=== PATIENT | male | born 1980 | race African-American/Black ===

== ENCOUNTER 2021-07-30 21:37 | Emergency (ER) | payer SELFPAY ==
[2021-07-30 22:37] LABS: Absolute Lymphocytes (CBC) 1.4 K/uL (0.7-4.9); Basophils % 0.6 % (0-1.3); Hematocrit 45.6 % (39.6-49.0); Lymphocytes % 14.1 % (15.3-44.8); MPV 8.7 fL (7.6-11.3)
[2021-07-30 22:39] LABS: Urine Blood Negative (Negative); Urine Glucose Negative (Negative); Urine Protein Negative (Negative); Urine Specific Gravity <=1.005 (1.005-1.030); Urine pH 5.5 (5.0-7.0)
[2021-07-30 22:42] LABS: Protime INR 1.13
[2021-07-30 23:10] LABS: ALT/SGPT 31 U/L (12-78); AST/SGOT 13 U/L (15-37); Albumin 4.2 g/dL (3.4-5.0); Alkaline Phosphatase 59 U/L (45-117); BUN Blood Urea Nitrogen 7 mg/dL (7-18); Bicarbonate 26 mmol/L (21-32); Bilirubin Direct 0.2 mg/dL (0-0.2); Glucose Level 78 mg/dL (74-106); Potassium 3.3 mmol/L (3.5-5.1); Protein, Total 8.1 g/dL (6.4-8.2); Sodium Level 139 mmol/L (136-145)
[2021-07-30 23:22] LABS: Barbiturates NEGATIVE (NEGATIVE); Benzodiazepines NEGATIVE (NEGATIVE); Cocaine NEGATIVE (NEGATIVE); METHAMPHETAM NEGATIVE (NEGATIVE); Methadone NEGATIVE (NEGATIVE); Opiates NEGATIVE (NEGATIVE); Phencyclidine NEGATIVE (NEGATIVE); THC Cannibis POSITIVE (NEGATIVE)
--- NOTE | 2021-07-31 03:24 | EDPHYS ---
Physician Documentation [facility] Name: Landon Whelan Age: 40 yrs Sex: Male : 1980 Arrival Date: 07/30/2021 Time: 21:44 Bed 6 Private MD: ED Physician Aries Green HPI: 07/30 21:35 This 40 yrs old Black Male presents to ER via EMS with complaints of Psychiatric mh7 Problem. Alcohol Use. 21:35 The patient presents to the emergency department with a history of substance abuse, mh7 Type: beer, the amount of abuse is unknown, for an unknown duration, " Wants to get his head straight". Onset: The symptoms/episode began/occurred today. Past psychiatric history: Prior diagnosis: unknown, Psychiatric medications include: none, Primary psychiatric physician: the patient does not have a primary psychiatric physician, the patient has not had a prior suicide gesture, the patient has a previous inpatient psychiatric history, last year, at [facility], the patient's last psychiatric treatment was last year. Associated signs and symptoms: Pertinent positives; anxiety, substance abuse, Pertinent negatives: abdominal pain, chest pain, chills, delusions, depression, fever, hallucinations, headache, homicidal ideation, nausea, night sweats, palpitations, paranoia, shortness of breath, suicide ideation, tremor, vomiting. Severity of symptoms: At their worst the symptoms were moderate today, in the emergency department the symptoms are unchanged despite EMS interventions. EMS reports they were called to scene by police where patient was attempting to enter home of his ex. patient states that he wants to go to [facility] to get his head straight. He admits to drinking alcohol and smoking some substances. He denies any suicidal or homicidal ideation. He denies any auditory or visual hallucinations. He has variable cooperativity with questions.. Historical: - Allergies: 21:51 No Known Allergies; wg - Home Meds: 21:51 None [Active]; wg - PMHx: 21:51 None; wg - Immunization history:: Adult Immunizations up to date. - Social history:: Smoking status: Patient reports the use of cigarette tobacco products, unknown Patient uses alcohol, street drugs, marijuana, Patient/guardian denies using IV drugs. ROS: 21:35 Constitutional: Negative for fever, chills, and weight loss, Eyes: Negative for injury, mh7 pain, redness, and discharge, ENT: Negative for injury, pain, and discharge, Neck: Negative for injury, pain, and swelling, Cardiovascular: Negative for chest pain, palpitations, and edema, Respiratory: Negative for shortness of breath, cough, wheezing, and pleuritic chest pain, Abdomen/GI: Negative for abdominal pain, nausea, vomiting, diarrhea, and constipation, Back: Negative for injury and pain, : Negative for injury, bleeding, discharge, and swelling, MS/Extremity: Negative for injury and deformity, Skin: Negative for injury, rash, and discoloration, Neuro: Negative for headache, weakness, numbness, tingling, and seizure, Allergy/Immunology: Negative for hives, rash, and allergies, Endocrine: Negative for neck swelling, polydipsia, polyuria, polyphagia, and marked weight changes, Hematologic/Lymphatic: Negative for swollen nodes, abnormal bleeding, and unusual bruising. Exam: 21:35 Head/Face: Normocephalic, atraumatic. mh7 21:35 Eyes: Pupils equal round and reactive to light, extra-ocular motions intact. Lids and lashes normal. Conjunctiva and sclera are non-icteric and not injected. Cornea within normal limits. Periorbital areas with no swelling, redness, or edema. Neck: Trachea midline, no thyromegaly or masses palpated, and no cervical lymphadenopathy. Supple, full range of motion without nuchal rigidity, or vertebral point tenderness. No Meningismus. Chest/axilla: Normal chest wall appearance and motion. Nontender with no deformity. No lesions are appreciated. 21:35 Respiratory: Lungs have equal breath sounds bilaterally, clear to auscultation and percussion. No rales, rhonchi or wheezes noted. No increased work of breathing, no retractions or nasal flaring. Abdomen/GI: Soft, non-tender, with normal bowel sounds. No distension or tympany. No guarding or rebound. No evidence of tenderness throughout. Back: No spinal tenderness. No costovertebral tenderness. Full range of motion. Skin: Warm, dry with normal turgor. Normal color with no rashes, no lesions, and no evidence of cellulitis. MS/ Extremity: Pulses equal, no cyanosis. Neurovascular intact. Full, normal range of motion. Neuro: Awake and alert, GCS 15, oriented to person, place, time, and situation. Cranial nerves II-XII grossly intact. Motor strength 5/5 in all extremities. Sensory grossly intact. Cerebellar exam normal. Normal gait. 21:35 Constitutional: The patient appears in no acute distress, alert, awake, agitated. 21:35 Cardiovascular: Rate: tachycardic, Rhythm: regular, Pulses: no pulse deficits are appreciated, Heart sounds: normal, normal S1and S2, Edema: is not appreciated, JVD: is not appreciated. 21:35 Psych: Behavior/mood is anxious, angry, Affect is animated, Oriented to person, place, time, Patient has no thoughts/intents to harm self or others. Judgement / Insight is normal. Memory is normal. Delusions/hallucinations are not present. Vital Signs: 21:44 BP 137 / 90; Pulse 110; Resp 18; Temp 98.6; Pulse Ox 100% on R/A; Weight 81.65 kg; wg Height 6 ft. 2 in. (187.96 cm); Pain 0/10; 22:39 BP 128 / 88; Pulse 92; Resp 18; Pulse Ox 99% on R/A; Pain 0/10; wg 23:14 BP 126 / 82; Pulse 90; Resp 18; Pulse Ox 99% on R/A; wg 07/31 00:50 BP 118 / 82; Pulse 82; Resp 18; Pulse Ox 99% on R/A; wg 02:15 BP 119 / 78; Pulse 78; Resp 18; Pulse Ox 99% ; Pain 0/10; wg 03:22 BP 121 / 78; Pulse 80; Resp 18; Pulse Ox 99% on R/A; Pain 0/10; wg 07/30 21:44 Body Mass Index 23.11 (81.65 kg, 187.96 cm) MDM: 03:21 Differential diagnosis: drug withdrawal. depression, Alcohol intoxication, substance mh7 abuse. Data reviewed: vital signs, nurses notes, EMS record, lab test result(s), CBC, drug level(s), electrolytes, urine drug screen, EKG. Data interpreted: Pulse oximetry: on room air is 99 %. Interpretation: normal. Counseling: I had a detailed discussion with the patient and/or guardian regarding: the historical points, exam findings, and any diagnostic results supporting the discharge/admit diagnosis, lab results, radiology results, the need for outpatient follow up, to return to the emergency department if symptoms worsen or persist or if there are any questions or concerns that arise at home. Response to treatment: the patient's symptoms have resolved after treatment, the patient's blood pressure is in an acceptable range, mental status has returned to baseline, the patient no longer shows bradycardia, the patient is not short of breath, the patient is not tachycardic, the patient's pain is gone, the patient's temperature has normalized. 03:23 Patient medically screened. [facility] 07/30 21:46 Order name: Acetaminophen [facility] 07/30 21:46 Order name: Basic Metabolic Panel; Complete Time: 03:24 [facility] 07/30 21:46 Order name: CBC with Diff; Complete Time: 23:15 [facility] 07/30 21:46 Order name: ETOH Level; Complete Time: 00: [facility] 07/30 21:46 Order name: Hepatic Function; Complete Time: 03:24 [facility] 07/30 21:46 Order name: PT-INR; Complete Time: 23:15 [facility] 07/30 21:46 Order name: Ptt, Activated; Complete Time: 23:15 [facility] 07/30 21:46 Order name: Salicylate; Complete Time: 23:15 [facility] 07/30 21:46 Order name: Urine Drug Screen; Complete Time: 00: [facility] 07/30 21:46 Order name: Acetaminophen Level; Complete Time: 03:24 [facility] 07/30 22:38 Order name: Urine Dipstick-Ancillary; Complete Time: 23:15 [facility] 07/30 23:27 Order name: SARS-COV-2 RT PCR; Complete Time: 00: [facility] 07/31 03:10 Order name: ETOH Level 07/30 21:46 Order name: EKG; Complete Time: 21:46 [facility] 07/30 21:46 Order name: EKG - Nurse/Tech; Complete Time: 22:27 [facility] 07/30 21:46 Order name: IV Saline Lock; Complete Time: 22:28 [facility] 07/30 21:46 Order name: Labs collected and sent; Complete Time: 22:28 [facility] 07/30 21:46 Order name: Suicide Screening ([place]); Complete Time: 22:38 [facility] 07/30 21:46 Order name: Urine Dipstick-Ancillary (obtain specimen); Complete Time: 22:38 [facility] 07/31 03:10 Order name: Alcohol Serum/Plasma EDMS Administered Medications: No medications were administered Disposition Summary: 07/31/21 03:23 Discharge Ordered Location: Home [facility] Problem: an acute exacerbation [facility] Symptoms: have improved [facility] Condition: Stable [facility] Diagnosis - Alcohol use, unspecified with intoxication [facility] - Cannabis abuse [facility] Followup: [facility] - With: Private Physician - When: 1 - 2 days - Reason: Worsening of condition, Recheck today's complaints, Continuance of care, Re-evaluation by your physician Followup: [facility] - With: Luis Sanchez MD - When: 1 - 2 days - Reason: Worsening of condition, Recheck today's complaints Discharge Instructions: - Discharge Summary Sheet [facility] - Cannabis Use Disorder [facility] - Alcohol Intoxication, [id number] [facility] Forms: - Medication Reconciliation Form [facility] - Thank You Letter [facility] - Antibiotic Education [facility] - Prescription Opioid Use [facility] Signatures: Dispatcher [employer] EDAries Deleon MD MD [facility] Casey Yan RN wg Corrections: (The following items were deleted from the chart) 07/30 22:34 21:49 CORONAVIRUS+MR.LAB.BRZ ordered. EDPA EDMS
--- NOTE | 2021-07-31 03:24 | ER ---
Nurse's Notes [facility] Name: Landon Whelan Age: 40 yrs Sex: Male : 1980 Arrival Date: 07/30/2021 Time: 21:44 Bed 6 Private MD: Diagnosis: Alcohol use, unspecified with intoxication;Cannabis abuse Presentation: 07/30 21:44 Chief complaint: Patient states: Pt states he wants to come in to get his head wg straight. Pt denies SI \\T\\ HI. EMS stated pt was brought in from a residence following a call from PD. Pt admits to smoking weed, "vanilla PA" and several beers. Pt states he want to go to [facility] where he has been treated for psych in the past. Pt initially refusing vitals but states he's willing to be cooperative. Coronavirus screen: Vaccine status: Patient reports being unvaccinated. At this time, the client does not indicate any symptoms associated with coronavirus-19. Ebola Screen: Patient negative for fever greater than or equal to 101.5 degrees Fahrenheit, and additional compatible Ebola Virus Disease symptoms Patient denies exposure to infectious person. Patient denies travel to an Ebola-affected area in the 21 days before illness onset. Initial Sepsis Screen: Does the patient meet any 2 criteria? No. Patient's initial sepsis screen is negative. Initial Sepsis Screen: Does the patient have a suspected source of infection? No. Patient's initial sepsis screen is negative. Risk Assessment: Do you want to hurt yourself or someone else? Patient reports no desire to harm self or others. Onset of symptoms was July 30, 2021. Care prior to arrival: None. 21:44 Method Of Arrival: EMS: [facility] 21:44 Acuity: ADRIANO 2 wg Triage Assessment: 21:49 General: Appears comfortable, well developed, Behavior is anxious, Uncooperative at wg times. Inappropriately singing loudly at times. . General: Smells of alcohol. Pain: Denies pain. Neuro: Level of Consciousness is awake, alert, obeys commands, Oriented to person, place, time, situation, Lining Folder are equal bilaterally Moves all extremities. Speech is normal, Facial symmetry appears normal, Pupils are PERRLA. Cardiovascular: No deficits noted. Respiratory: No deficits noted. GI: No deficits noted. : No deficits noted. : No deficits noted. Derm: No deficits noted. 21:51 EENT: No deficits noted. Musculoskeletal: No deficits noted. wg Historical: - Allergies: 21:51 No Known Allergies; wg - Home Meds: 21:51 None [Active]; wg - PMHx: 21:51 None; wg - Immunization history:: Adult Immunizations up to date. - Social history:: Smoking status: Patient reports the use of cigarette tobacco products, unknown Patient uses alcohol, street drugs, marijuana, Patient/guardian denies using IV drugs. Screenin:29 Abuse screen: Denies threats or abuse. Denies injuries from another. Nutritional wg screening: No deficits noted. Tuberculosis screening: No symptoms or risk factors identified. Fall Risk IV access (20 points). Mental Status-. Assessment: 22:29 Reassessment: Patient appears in no apparent distress at this time. No changes from wg previously documented assessment. Patient is alert, oriented x 3, equal unlabored respirations, skin warm/dry/pink. Patient states symptoms have improved. 22:39 Reassessment: Pt calm and cooperative. Pt watching TV. States he does not want to harm wg self or others. . 23:14 Reassessment: Patient and/or family updated on plan of care and expected duration. Pain wg level reassessed. Patient is alert, oriented x 3, equal unlabored respirations, skin warm/dry/pink. Pt sleeping. 07/31 00:58 Reassessment: No changes from previously documented assessment. Patient and/or family wg updated on plan of care and expected duration. Pain level reassessed. Patient is alert, oriented x 3, equal unlabored respirations, skin warm/dry/pink. Pt sleeping. 02:27 Reassessment: No changes from previously documented assessment. Patient and/or family wg updated on plan of care and expected duration. Pain level reassessed. Patient is alert, oriented x 3, equal unlabored respirations, skin warm/dry/pink. Pt sleeping. Pt would get up and walk to bathroom on occasion with steady gait. 03:27 Reassessment: Pt states he wants to go home. States he is feeling much better and his wg head is clear. Pt will call friend for a ride home. Vital Signs: 07/30 21:44 BP 137 / 90; Pulse 110; Resp 18; Temp 98.6; Pulse Ox 100% on R/A; Weight 81.65 kg; wg Height 6 ft. 2 in. (187.96 cm); Pain 0/10; 22:39 BP 128 / 88; Pulse 92; Resp 18; Pulse Ox 99% on R/A; Pain 0/10; wg 23:14 BP 126 / 82; Pulse 90; Resp 18; Pulse Ox 99% on R/A; wg 07/31 00:50 BP 118 / 82; Pulse 82; Resp 18; Pulse Ox 99% on R/A; wg 02:15 BP 119 / 78; Pulse 78; Resp 18; Pulse Ox 99% ; Pain 0/10; wg 03:22 BP 121 / 78; Pulse 80; Resp 18; Pulse Ox 99% on R/A; Pain 0/10; wg 07/30 21:44 Body Mass Index 23.11 (81.65 kg, 187.96 cm) ED Course: 07/30 21:44 Patient arrived in ED. 21:44 Csaey Yan RN is Primary Nurse. 21:45 Aries Green MD is Attending Physician. 7 21:49 Triage completed. wg 21:49 Arm band placed on right wrist. wg 22:28 Acetaminophen Level Sent. wg 22:28 Acetaminophen Sent. wg 22:28 Basic Metabolic Panel Sent. wg 22:28 CBC with Diff Sent. wg 22:28 ETOH Level Sent. wg 22:28 Hepatic Function Sent. wg 22:28 PT-INR Sent. wg 22:28 Ptt, Activated Sent. wg 22:28 Salicylate Sent. wg 22:28 Urine Drug Screen Sent. 22:29 Inserted saline lock: 20 gauge in right antecubital area, using aseptic technique. wg 22:30 No provider procedures requiring assistance completed. wg 22:31 Patient has correct armband on for positive identification. Fall risk band placed. Call wg light in reach. Side rails up X2. NIBP on. Cardiac monitoring not applicable on this patient. Patient is placed in psych hold. 07/31 03:22 Luis Sanchez MD is Referral Physician. 7 03:27 IV discontinued, intact, bleeding controlled, No redness/swelling at site. Pressure wg dressing applied. 03:29 ETOH Level Sent. 03:29 Alcohol Serum/Plasma Sent. Administered Medications: No medications were administered Outcome: 03:23 Discharge ordered by . good 03:28 Discharged to home ambulatory. wg 03:28 Condition: stable 03:28 Discharge instructions given to patient, Instructed on discharge instructions, follow up and referral plans. Demonstrated understanding of instructions, follow-up care. 03:29 Patient left the ED. wg Signatures: Aries Green MD MD mh7 Gamba, Liam, RN meron Corrections: (The following items were deleted from the chart) 07/30 22:34 22:28 CORONAVIRUS+MR.LAB.BRZ drawn and sent. meron EDMS
[2021-07-31 03:36] VITALS: TEMP 98.6
[2021-07-31 03:37] VITALS: O2SAT 99
[2021-07-31 03:42] VITALS: BP 121/78
== END 2021-07-31 03:29 | disposition home or self-care (01) ==
LOC: ER 21:37
DX: F12.10 Cannabis abuse, uncomplicated (principal); Z72.0 Tobacco use
CPT/HCPCS: 36415; 80048; 80076; 80307; 80320; 80329; 81003; 85025; 85610; 85730; 93005; 99284; U0003

== ENCOUNTER 2021-08-01 15:21 | Emergency (ER) | payer SELFPAY ==
--- NOTE | 2021-08-01 15:47 | ER ---
Nurse's Notes [facility] Name: Landon Whelan Age: 40 yrs Sex: Male : 1980 Arrival Date: 08/01/2021 Time: 15:25 Bed Waiting Private MD: Diagnosis: Encounter for screening, unspecified Presentation: 08/01 15:28 Chief complaint: Patient states: Covid + 1 month ago, denies current symptoms, jl7 requesting re-test. Coronavirus screen: Vaccine status: Patient reports being unvaccinated. At this time, the client does not indicate any symptoms associated with coronavirus-19. Ebola Screen: No symptoms or risks identified at this time. Initial Sepsis Screen: Does the patient meet any 2 criteria? No. Patient's initial sepsis screen is negative. Does the patient have a suspected source of infection? No. Patient's initial sepsis screen is negative. Risk Assessment: Do you want to hurt yourself or someone else? Patient reports no desire to harm self or others. Onset of symptoms is unknown. 15:28 Method Of Arrival: Ambulatory jl 15:28 Acuity: ADRIANO 5 jl7 Triage Assessment: 15:31 General: Appears in no apparent distress. comfortable, Behavior is calm, cooperative, jl7 appropriate for age. Pain: Denies pain. Historical: - Allergies: 15:31 No Known Allergies; jl7 - Home Meds: 15:31 None [Active]; jl7 - PMHx: 15:31 None; jl7 - PSHx: 15:31 None; jl7 - Immunization history:: Adult Immunizations not up to date, Client reports having NOT received the Covid vaccine. - Social history:: Smoking status: Patient reports the use of cigarette tobacco products, smokes one pack cigarettes per day. Screenin:36 Abuse screen: Denies threats or abuse. Denies injuries from another. Nutritional jl7 screening: No deficits noted. Tuberculosis screening: No symptoms or risk factors identified. Fall Risk None identified. Assessment: 15:31 Reassessment: NGUYỄN Staley in triage assessing pt. jl7 Vital Signs: 15:28 BP 120 / 96; Pulse 86; Resp 17; Temp 98.5; Pulse Ox 100% ; Weight 70.31 kg; Height 5 jl7 ft. 10 in. (177.80 cm); Pain 0/10; 15:28 Body Mass Index 22.24 (70.31 kg, 177.80 cm) jl7 ED Course: 15:25 Patient arrived in ED. mr 15:25 Rebeka Mckeon FNP-C is [facility]. kb 15:25 Jared Gibson MD is Attending Physician. kb 15:30 Triage completed. jl7 15:31 Arm band placed on right wrist. jl7 15:36 Daron Kim, LISA is Primary Nurse. jl7 15:36 Patient has correct armband on for positive identification. jl7 15:36 No provider procedures requiring assistance completed. Patient did not have IV access jl7 during this emergency room visit. Administered Medications: No medications were administered Outcome: 15:36 Medical screen evaluation completed per provider. Patient declined treatment. jl7 15:36 Condition: stable jl7 15:46 Discharge ordered by . kb 15:59 Patient left the ED. hb Signatures: Rebeka Mckeon FNP-C FNP-Zoraida Rubi mr Kaykay Verdugo RN RN Daron Kim RN RN jl7
--- NOTE | 2021-08-01 15:47 | EDPHYS ---
Physician Documentation [facility] Name: Landon Whelan Age: 40 yrs Sex: Male : 1980 Arrival Date: 08/01/2021 Time: 15:25 Bed Waiting Private MD: ED Physician Jared Gibson HPI: 08/01 16:15 This 40 yrs old Black Male presents to ER via Ambulatory with complaints of Covid Test. kb 16:15 Pt states he tested positive for covid a month ago at [facility] and wants to see if he still kb has it. Denies any symptoms at this time. Onset: The symptoms/episode began/occurred today. Severity of symptoms: At their worst the symptoms were mild in the emergency department the symptoms have resolved. The patient has not experienced similar symptoms in the past. The patient has not recently seen a physician. Historical: - Allergies: 15:31 No Known Allergies; jl7 - Home Meds: 15:31 None [Active]; jl7 - PMHx: 15:31 None; jl7 - PSHx: 15:31 None; jl7 - Immunization history:: Adult Immunizations not up to date, Client reports having NOT received the Covid vaccine. - Social history:: Smoking status: Patient reports the use of cigarette tobacco products, smokes one pack cigarettes per day. ROS: 16:03 Constitutional: Negative for fever, chills, and weight loss. kb 16:03 All other systems are negative. Exam: 16:03 Constitutional: This is a well developed, well nourished patient who is awake, alert, kb and in no acute distress. Head/Face: Normocephalic, atraumatic. ENT: Moist Mucous membranes Respiratory: Respirations even and unlabored. No increased work of breathing, no retractions or nasal flaring. Skin: Warm, dry with normal turgor. Normal color. MS/ Extremity: Pulses equal, no cyanosis. Neurovascular intact. Full, normal range of motion. Neuro: Awake and alert, GCS 15, oriented to person, place, time, and situation. Moves all extremities. Normal gait. Psych: Awake, alert, with orientation to person, place and time. Behavior, mood, and affect are within normal limits. Vital Signs: 15:28 BP 120 / 96; Pulse 86; Resp 17; Temp 98.5; Pulse Ox 100% ; Weight 70.31 kg; Height 5 jl7 ft. 10 in. (177.80 cm); Pain 0/10; 15:28 Body Mass Index 22.24 (70.31 kg, 177.80 cm) jl7 MDM: 15:46 Patient medically screened. kb 16:03 Data reviewed: vital signs, nurses notes. Data interpreted: Pulse oximetry: on room air kb is 100 %. Interpretation: normal. Counseling: I had a detailed discussion with the patient and/or guardian regarding: the historical points, exam findings, and any diagnostic results supporting the discharge/admit diagnosis, the need for outpatient follow up, a family practitioner, to return to the emergency department if symptoms worsen or persist or if there are any questions or concerns that arise at home. Administered Medications: No medications were administered Disposition: 15:35 Encounter for repeat covid test - asymptomatic. kb 16:54 Co-signature as Attending Physician, Jared Gibson MD. rn Disposition Summary: 08/01/21 15:46 Discharge Ordered Location: Home kb Condition: Stable kb Diagnosis - Encounter for screening, unspecified kb Followup: kb - With: Emergency Department - When: As needed - Reason: Worsening of condition Followup: kb - With: Private Physician - When: 2 - 3 days - Reason: Recheck today's complaints, Continuance of care, Re-evaluation by your physician Forms: - Medication Reconciliation Form kb - Thank You Letter kb - Antibiotic Education kb - Prescription Opioid Use kb Signatures: Rebeka Mckeon, CYBER SECURITY MANAGER-C CYBER SECURITY MANAGER-Ckb Jared Gibson MD MD rn Leal, Jahala, RN RN jl7
[2021-08-01 16:27] VITALS: BP 120/96; TEMP 98.5; O2SAT 100
== END 2021-08-01 15:59 | disposition home or self-care (01) ==
LOC: ER 15:21
DX: Z20.822 Contact with and (suspected) exposure to COVID-19 (principal)
CPT/HCPCS: 99281

== ENCOUNTER 2022-10-08 10:28 | Observation (INO) | payer SELFPAY ==
--- NOTE | 2022-10-08 11:38 | ER ---
Nurse's Notes [facility] Name: Landon Whelan Age: 41 yrs Sex: Male : 1980 Arrival Date: 10/08/2022 Time: 10:31 Bed 16 Private MD: Diagnosis: Right upper extremity DVT;Pain in right arm Presentation: 10/08 10:38 Chief complaint: Patient states: Pt reports spontaneous onset of right arm pain and kb3 swelling that began on Sunday. Coronavirus screen: Vaccine status: Patient reports being unvaccinated. Client denies travel out of the [place] in the last 14 days. Ebola Screen: Patient negative for fever greater than or equal to 101.5 degrees Fahrenheit, and additional compatible Ebola Virus Disease symptoms Patient denies exposure to infectious person. Patient denies travel to an Ebola-affected area in the 21 days before illness onset. Initial Sepsis Screen: Does the patient meet any 2 criteria? No. Patient's initial sepsis screen is negative. Does the patient have a suspected source of infection? No. Patient's initial sepsis screen is negative. Risk Assessment: Do you want to hurt yourself or someone else? Patient reports no desire to harm self or others. Onset of symptoms was October 06, 2022. 10:38 Method Of Arrival: Ambulatory kb3 10:38 Acuity: ADRIANO 3 kb3 Triage Assessment: 10:39 General: Appears in no apparent distress. Behavior is calm, cooperative. Pain: kb3 Complains of pain in right tricep, right elbow and palmar aspect of right forearm Pain does not radiate. Pain currently is 5 out of 10 on a pain scale. Historical: - Allergies: 10:39 No Known Allergies; kb3 - Home Meds: 10:39 None [Active]; kb3 - PMHx: 10:39 None; kb3 - PSHx: 10:39 Knee sx; kb3 - Immunization history:: Adult Immunizations up to date, Client reports having NOT received the Covid vaccine. Last tetanus immunization: up to date. - Social history:: Smoking status: Patient reports the use of cigarette tobacco products, cigars. Screenin:45 Abuse screen: Denies threats or abuse. Denies injuries from another. Nutritional kb3 screening: No deficits noted. Tuberculosis screening: No symptoms or risk factors identified. Fall Risk None identified. Assessment: 10:45 General: See triage note. kb3 11:50 General: Appears in no apparent distress. comfortable, Behavior is calm, cooperative. tp1 Pain: Complains of pain in right arm Pain does not radiate. Pain currently is 5 out of 10 on a pain scale. Quality of pain is described as sharp. Neuro: Level of Consciousness is awake, alert, obeys commands, Oriented to person, place, time, situation. Cardiovascular: Capillary refill < 3 seconds in bilateral fingers Patient's skin is warm and dry. Respiratory: Airway is patent Respiratory effort is even, unlabored, Denies shortness of breath. GI: No signs and/or symptoms were reported involving the gastrointestinal system. : No signs and/or symptoms were reported regarding the genitourinary system. EENT: No signs and/or symptoms were reported regarding the EENT system. Derm: Skin temperature is right upper extremity is warm. Musculoskeletal: Circulation, motion, and sensation intact. Swelling present in right bicep Denies numbness in, right hand. 12:56 Reassessment: Patient appears in no apparent distress at this time. No changes from tp1 previously documented assessment. Patient and/or family updated on plan of care and expected duration. Pain level reassessed. Patient is alert, oriented x 3, equal unlabored respirations, skin warm/dry/pink. 13:56 Reassessment: Patient appears in no apparent distress at this time. No changes from tp1 previously documented assessment. Patient is alert, oriented x 3, equal unlabored respirations, skin warm/dry/pink. resting comfortably watching TV. 15:11 Reassessment: Patient appears in no apparent distress at this time. No changes from tp1 previously documented assessment. Patient is alert, oriented x 3, equal unlabored respirations, skin warm/dry/pink. Patient denies pain at this time. Vital Signs: 10:38 BP 114 / 81; Pulse 84; Resp 20; Temp 99.4; Pulse Ox 100% ; Weight 70.31 kg; Height 5 kb3 ft. 10 in. (177.80 cm); Pain 5/10; 12:02 BP 119 / 83; Pulse 67; Resp 16; Pulse Ox 91% on R/A; tp1 12:56 BP 118 / 82; Pulse 74; Resp 16; Pulse Ox 100% on R/A; tp1 13:57 BP 108 / 74; Pulse 82; Resp 16; Pulse Ox 100% on R/A; tp1 15:00 BP 105 / 78; Pulse 85; Resp 16; Pulse Ox 100% on R/A; tp1 10:38 Body Mass Index 22.24 (70.31 kg, 177.80 cm) kb3 ED Course: 10:31 Patient arrived in ED. jl7 10:32 Kamari Hall DO is Attending Physician. ms3 10:39 Triage completed. kb3 10:39 Arm band placed on left wrist. kb3 10:45 Patient has correct armband on for positive identification. Bed in low position. Call kb3 light in reach. Side rails up X 1. 10:45 No provider procedures requiring assistance completed. Patient did not have IV access kb3 during this emergency room visit. 11:04 Irais Benítez, LISA is Primary Nurse. kb3 11:37 Shena Fischer MD is Hospitalizing Provider. ms3 11:39 US Extremity Venous Unilateral Ltd: Right upper extremity In Process Unspecified. EDMS 12:01 COVID swab sent to lab. Inserted saline lock: 20 gauge in left antecubital area, using tp1 aseptic technique. Blood collected. 12:05 Primary Nurse role handed off by Irais Benítez RN tp1 12:05 Genesis Olivas, LISA is Primary Nurse. tp1 19:59 Patient admitted, IV remains in place. tp1 10/09 00:35 Primary Nurse role handed off by Genesis Olivas RN vc1 00:35 Simran Beltran, LISA is Primary Nurse. vc1 Administered Medications: 10/08 12:45 Drug: Eliquis (apixaban) 5 mg Route: PO; tp1 13:57 Follow up: Response: No adverse reaction tp1 Medication: 10:45 VIS not applicable for this client. kb3 Outcome: 11:37 Decision to Hospitalize by Provider. ms3 16:41 Admitted to ER Hold. Please see [facility] for further documentation. tp1 16:41 Condition: good tp1 16:41 Discharge instructions given to patient, Instructed on the need for admit, Demonstrated understanding of instructions. 10/09 15:31 Patient left the ED. vg1 Signatures: Dispatcher [employer] EDMS Daron Kim RN RN jl7 Rose Shahid RN RN vg1 Kamari Hall DO DO ms3 Genesis Olivas RN RN tp1 Simran Beltran, RN RN vc1 Irais Benítez RN RN kb3 Corrections: (The following items were deleted from the chart) 10/08 15:15 15:11 Reassessment: Patient appears in no apparent distress at this time. No changes tp1 from previously documented assessment. Patient is alert, oriented x 3, equal unlabored respirations, skin warm/dry/pink. tp1 19:59 19:58 Admitted to ER Hold. Please see [facility] for further documentation. tp1 tp1
--- NOTE | 2022-10-08 11:38 | EDPHYS ---
Physician Documentation [facility] Name: Landon Whelan Age: 41 yrs Sex: Male : 1980 Arrival Date: 10/08/2022 Time: 10:31 Bed 16 Private MD: ED Physician Kamari Hall HPI: 10/08 10:41 This 41 yrs old Black Male presents to ER via Ambulatory with complaints of Arm Pain. ms3 10:41 The patient or guardian complains of pain, that is acute, swelling. The complaints ms3 affect the right arm. Context: resulted from unknown cause. Onset: The symptoms/episode began/occurred 2 day(s) ago. Treatment prior to arrival includes: no previous treatment. Modifying factors: The symptoms are alleviated by nothing. the symptoms are aggravated by nothing. Associated signs and symptoms: Pertinent negatives: fever, warmth. Severity of symptoms: At their worst the symptoms were moderate, in the emergency department the symptoms are unchanged. Historical: - Allergies: 10:39 No Known Allergies; kb3 - Home Meds: 10:39 None [Active]; kb3 - PMHx: 10:39 None; kb3 - PSHx: 10:39 Knee sx; kb3 - Immunization history:: Adult Immunizations up to date, Client reports having NOT received the Covid vaccine. Last tetanus immunization: up to date. - Social history:: Smoking status: Patient reports the use of cigarette tobacco products, cigars. ROS: 10:41 Constitutional: Negative for fever, and chills. Neck: Negative for injury, pain, and ms3 swelling, Cardiovascular: Negative for chest pain, and palpitations. Respiratory: Negative for shortness of breath, cough, wheezing, and pleuritic chest pain, Abdomen/GI: Negative for abdominal pain, nausea, vomiting, diarrhea, and constipation, Back: Negative for injury and pain. 10:41 MS/extremity: Positive for swelling, tenderness, of the right arm. 10:41 MS/extremity: 10:41 MS/extremity: 10:41 All other systems are negative. Exam: 10:41 Constitutional: This is a well developed, well nourished patient who is awake, alert, ms3 and in no acute distress. Neck: Trachea midline, no cervical lymphadenopathy. Supple, full range of motion without nuchal rigidity, or vertebral point tenderness. No Meningismus. Chest/axilla: Normal chest wall appearance and motion. Nontender with no deformity. Cardiovascular: Regular rate and rhythm with a normal S1 and S2. No gallops, murmurs, or rubs. Normal PMI, no JVD. No pulse deficits. Respiratory: Lungs have equal breath sounds bilaterally, clear to auscultation and percussion. No rales, rhonchi or wheezes noted. No increased work of breathing, no retractions or nasal flaring. Abdomen/GI: Soft, non-tender, with normal bowel sounds. No distension or tympany. No guarding or rebound. No evidence of tenderness throughout. Skin: Warm, dry with normal turgor. Normal color with no rashes, no lesions, and no evidence of cellulitis. 10:41 Musculoskeletal/extremity: Extremities: noted in the right arm: pain, swelling, ROM: no acute changes, Circulation is intact in all extremities. Sensation intact. Vital Signs: 10:38 BP 114 / 81; Pulse 84; Resp 20; Temp 99.4; Pulse Ox 100% ; Weight 70.31 kg; Height 5 kb3 ft. 10 in. (177.80 cm); Pain 5/10; 12:02 BP 119 / 83; Pulse 67; Resp 16; Pulse Ox 91% on R/A; tp1 12:56 BP 118 / 82; Pulse 74; Resp 16; Pulse Ox 100% on R/A; tp1 13:57 BP 108 / 74; Pulse 82; Resp 16; Pulse Ox 100% on R/A; tp1 15:00 BP 105 / 78; Pulse 85; Resp 16; Pulse Ox 100% on R/A; tp1 10:38 Body Mass Index 22.24 (70.31 kg, 177.80 cm) kb3 MDM: 10:37 Patient medically screened. ms3 10:41 Differential diagnosis: over use injury vs DVT vs cellulitis. ms3 11:37 Data reviewed: vital signs, nurses notes, lab test result(s), radiologic studies, ms3 ultrasound. ED course: Case discussed with Dr Fischer and he accepts patient as observation.. 10/08 11:36 Order name: CBC with Diff ms3 10/08 11:36 Order name: BMP ms3 10/08 11:36 Order name: PT-INR ms3 10/08 11:38 Order name: SARS RAPID ms3 10/08 15:07 Order name: CBC with Automated Diff EDMS 10/08 15:07 Order name: CBC with Automated Diff EDMS 10/08 10:39 Order name: US Extremity Venous Unilateral Ltd: Right upper extremity; Complete Time: ms3 12:10 10/08 15:07 Order name: Regular EDMS 10/08 15:07 Order name: Comprehensive Metabolic Panel EDMS 10/08 15:07 Order name: Comprehensive Metabolic Panel EDMS 10/09 04:00 Order name: CBC Smear Scan EDMS Administered Medications: 12:45 Drug: Eliquis (apixaban) 5 mg Route: PO; tp1 13:57 Follow up: Response: No adverse reaction tp1 Disposition Summary: 10/08/22 11:37 Hospitalization Ordered Hospitalization Status: Observation ms3 Provider: Shena Fischer ms3 Condition: Stable ms3 Problem: new ms3 Symptoms: are unchanged ms3 Bed/Room Type: Standard ms3 Location: [facility] ER HOLD(10/08/22 16:41) jl7 Room Assignment: ERHOLD-(10/08/22 16:41) jl7 Diagnosis - Right upper extremity DVT ms3 - Pain in right arm ms3 Forms: - Medication Reconciliation Form ms3 - SBAR form ms3 Signatures: Dispatcher [employer] EDDaron Elena RN RN jl7 Kamari Hall DO DO ms3 Genesis Olivas RN RN tp1 Irais Benítez RN RN kb3 Corrections: (The following items were deleted from the chart) 16:41 11:37 Telemetry/MedSurg (observation) ms3 jl7 16:41 11:37 ms3 jl7
--- NOTE | 2022-10-08 11:47 | RAD REPORT ---
EXAM DESCRIPTION: USExtremity Venous Uni Ltd10/08/2022 11:37 am CLINICAL HISTORY: Right arm pain COMPARISON: None FINDINGS: Echogenic material consistent with acute thrombus is present within the right axillary and brachial veins. There is little flow. The right internal jugular, right subclavian, right cephalic,, right basilic, right ulnar and right radial veins are generally compressible and demonstrate augmentation. Doppler demonstrates good flow. Grayscale, color and spectral analysis performed on all vessels IMPRESSION: Acute thrombus right axillary and brachial veins
[2022-10-08 12:29] LABS: Absolute Lymphocytes (CBC) 1.3 K/uL (0.7-4.9); Hematocrit 42.6 % (39.6-49.0); Lymphocytes % 16.4 % (15.3-44.8); MCV 104.9 fL (80-100); MPV 9.2 fL (7.6-11.3); RBC Red Blood Cell Count 4.06 M/uL (4.33-5.43)
[2022-10-08 12:30] LABS: Protime INR 1.25
[2022-10-08] MEDS ORDERED: APIXABAN 5 MG TABLET ONE ×2 (12:44→21:21)
[2022-10-08 13:42] LABS: SARS-CoV-2 Antigen Rapid Res Negative (Negative)
[2022-10-08] MEDS ORDERED: ACETAMINOPHEN 500 MG TAB PO PRN (15:03)
[2022-10-08] MEDS ORDERED: MORPHINE 2 MG/ML SYR IV PRN (15:03)
[2022-10-08] MEDS ORDERED: ONDANSETRON 4 MG/2 ML VIAL IV PRN (15:03)
[2022-10-08] MEDS: NA CHLORIDE 0.9% 1,000 ML IV SCH (16:00)
[2022-10-08] MEDS ORDERED: NA CHLORIDE 0.9% 1,000 ML ONE (16:05)
[2022-10-08] MEDS ORDERED: ONDANSETRON 4 MG/2 ML VIAL ONE (19:16)
[2022-10-08] MEDS ORDERED: MORPHINE 2 MG/ML SYR ONE (19:16)
[2022-10-08 20:03] VITALS: BMI 22.2
[2022-10-08] MEDS: APIXABAN 5 MG TABLET PO SCH (21:00)
[2022-10-09 02:46] LABS: Absolute Lymphocytes (CBC) 1.5 K/uL (0.7-4.9); MCV 105.2 fL (80-100); MPV 10.1 fL (7.6-11.3)
[2022-10-09] MEDS ORDERED: NA CHLORIDE 0.9% 1,000 ML ONE (03:11)
[2022-10-09 03:18] LABS: Albumin 3.1 g/dL (3.4-5.0); Bilirubin Total 2.6 mg/dL (0.2-1.0); Potassium 3.8 mmol/L (3.5-5.1); Protein, Total 6.5 g/dL (6.4-8.2)
[2022-10-09 04:00] LABS: Blood Morphology Comment NOTED (NOT SEEN); Macrocytosis 1+; Platelet Estimate ADEQ; White Blood Cell Scan OK (OK)
[2022-10-09] MEDS: NA CHLORIDE 0.9% 1,000 ML IV SCH (04:58)
[2022-10-09] MEDS ORDERED: APIXABAN 5 MG TABLET ONE (08:08)
[2022-10-09] MEDS: APIXABAN 5 MG TABLET PO SCH (08:14)
[2022-10-09 08:16] VITALS: BP 104/75; TEMP 98.2
--- NOTE | 2022-10-09 11:15 | P.HP ---
Certification for Inpatient Patient admitted to: Observation With expected LOS: <2 Midnights Patient will require the following post-hospital care: None Practitioner: I am a practitioner with admitting privileges, knowledge of patient current condition, hospital course, and medical plan of care. Services: Services provided to patient in accordance with Admission requirements found in Title 42 Section 412.3 of the Code of Federal Regulations Patient History Date of Service: 10/08/22 Reason for admission: Right upper extremity DVT History of Present Illness: Patient is a 41-year-old gentleman who came to the hospital with swelling of the right upper extremity. He states he does a a lot of repetitive movements with that right upper arm on his job day-to-day. He said he has been using it more lately and he has noticed some swelling in that area. He had a venous Doppler which revealed a DVT. Patient was started on anticoagulation. We will arrange for discharge on Eliquis twice daily. Allergies No Known Allergies Allergy (Unverified 12/28/11 02:18) Home Medications: NK [No Home Meds] 10/09/22 - Past Medical/Surgical History Past Medical History: Patient denies medical history Past Surgical History: Patient denies surgical history - Family History Father Family History: Reviewed- Non-Contributory - Social History Smoking Status: Current every day smoker Alcohol use: No CD- Drugs: Yes Caffeine use: Yes Review of Systems 10-point ROS is otherwise unremarkable Physical Examination - Vital Signs Temperature: 98.2 F Blood Pressure: 104/75 Pulse: 80 Respirations: 17 Pulse Ox (%): 100 - Physical Exam General: Alert, In no apparent distress, Oriented x3 HEENT: Atraumatic, PERRLA, Mucous membr. moist/pink, EOMI, Sclerae nonicteric Neck: Supple, 2+ carotid pulse no bruit, No LAD, Without JVD or thyroid abnormality Respiratory: Clear to auscultation bilaterally, Normal air movement Cardiovascular: Regular rate/rhythm, Normal S1 S2 Gastrointestinal: Normal bowel sounds, No tenderness Musculoskeletal: No tenderness, Swelling (Right upper extremity) Integumentary: No rashes Neurological: Normal gait, Normal speech, Normal strength at 5/5 x4 extr, Normal tone, Normal affect Lymphatics: No axilla or inguinal lymphadenopathy - Studies Laboratory Data (last 24 hrs) 10/08/22 12:17: PT 13.7 H, INR 1.25 11/27/22 12:17: Sodium 138, Potassium 4.0, BUN 5 L, Creatinine 0.78, Glucose 74 10/08/22 12:17: WBC 8.10, Hgb 14.4, Hct 42.6, Plt Count 139 L Assessment & Plan - Problems (Diagnosis) (1) Deep vein thrombosis of right upper extremity Current Visit: Yes Status: Acute - Plan Plan: 1. Continue with anticoagulation 2. Arrange for discharge with dialysis social worker 3. Outpatient work-up by hepatology as needed Discharge Plan: Home Plan to discharge in: Greater than 2 days - Advance Directives Does patient have a Living Will: No Does patient have a Durable POA for Healthcare: No - Code Status/Comfort Care Code Status Assessed: Yes Code Status: Full Code Critical Care: No Time Spent Managing PTS Care (In Minutes): 45
--- NOTE | 2022-10-09 14:29 | P.DS ---
Discharge Date: 10/09/22 Disposition: ROUTINE DISCHARGE Discharge Condition: GOOD Reason for Admission: Right upper extremity DVT - Problems (1) Deep vein thrombosis of right upper extremity Current Visit: Yes Status: Acute Brief History of Present Illness: Patient is a 41-year-old gentleman who came to the hospital with swelling of the right upper extremity. He states he does a a lot of repetitive movements with that right upper arm on his job day-to-day. He said he has been using it more lately and he has noticed some swelling in that area. He had a venous Doppler which revealed a DVT. Patient was started on anticoagulation. We will arrange for discharge on Eliquis twice daily. Hospital Course: Pt will be stable for discharge on Eliquis. Pt will need outpt follow-up with PCP. Vital Signs/Physical Exam: Temp Pulse Resp BP Pulse Ox 98.2 F 80 17 104/75 100 10/09/22 11:14 10/09/22 11:14 10/09/22 11:14 10/09/22 11:14 10/09/22 11:14 General: Alert, In no apparent distress, Oriented x3 Laboratory Data at Discharge: WBC 10.10 K/uL (4.3-10.9) 10/09/22 02:00 Hgb 13.9 g/dL (13.6-17.9) 10/09/22 02:00 Hct 41.0 % (39.6-49.0) 10/09/22 02:00 Plt Count 133 K/uL (152-406) L 10/09/22 02:00 PT 13.7 SECONDS (9.5-12.5) H 10/08/22 12:17 INR 1.25 10/08/22 12:17 Sodium 138 mmol/L (136-145) 10/09/22 02:00 Potassium 3.8 mmol/L (3.5-5.1) 10/09/22 02:00 BUN 6 mg/dL (7-18) L 10/09/22 02:00 Creatinine 0.82 mg/dL (0.55-1.3) 10/09/22 02:00 Glucose 96 mg/dL (74-106) 10/09/22 02:00 Total Bilirubin 2.6 mg/dL (0.2-1.0) H 10/09/22 02:00 AST 16 U/L (15-37) 10/09/22 02:00 ALT 35 U/L (12-78) 10/09/22 02:00 Alkaline Phosphatase 43 U/L (45-117) L 10/09/22 02:00 Home Medications: Apixaban [Eliquis] 5 mg PO BID #60 10/09/22 New Medications: Apixaban [Eliquis] 5 mg PO BID #60 Physician Discharge Instructions: -DC IV and DC home -Follow-up with PCP in 1 to 2 weeks -Please call Dr. Fischer at [phone] if any questions regarding hospital stay -Please call nursing station at [phone] if any nursing or medication qu estions -Return to the emergency room if symptoms worsen Diet: Regular Activity: Fall precautions Followup: NONE,NONE [Primary Care Provider] - Time spent managing pt's care (in minutes): 35
[2022-10-09 15:37] VITALS: O2SAT 100
== END 2022-10-09 15:15 | disposition home or self-care (01) ==
LOC: ER 10:28 → ERHOLD 15:04
PROVIDERS: ADMIT Hospitalist; ATTEND Hospitalist
DX: I82.621 Acute embolism and thrombosis of deep veins of right upper extremity (principal); F17.210 Nicotine dependence, cigarettes, uncomplicated; Z20.822 Contact with and (suspected) exposure to COVID-19
CPT/HCPCS: 36415; 80048; 80053; 85025; 85610; 87811; 93971; 99285; G0378; J2270; J2405; J7030